=== PATIENT | female | born 1960 | race Caucasian/White ===

== ENCOUNTER → 2023-06-04 08:22 | Outpatient (REF) | payer OTHER, SELFPAY | LOC: RAD 08:22 | PROVIDERS: ATTENDING PHYSICIAN Physician Assistant | DX: M79.674 Pain in right toe(s) (principal) | CPT/HCPCS: 73660 ==

== ENCOUNTER → 2023-10-29 07:10 | Outpatient (REF) | payer OTHER, SELFPAY | LOC: WDC 07:10 | PROVIDERS: ATTENDING PHYSICIAN Nurse Practitioner Adult Health; FAMILY PHYSICIAN Physician Assistant | DX: Z12.31 Encounter for screening mammogram for malignant neoplasm of breast (principal) | CPT/HCPCS: 77063; 77067 ==

== ENCOUNTER → 2024-07-14 07:33 | Outpatient (REF) | payer OTHER, SELFPAY | LOC: RCS 07:33 | PROVIDERS: ATTENDING PHYSICIAN Internal Medicine Rheumatology; FAMILY PHYSICIAN Physician Assistant | DX: R01.1 Cardiac murmur, unspecified (principal) | CPT/HCPCS: 93306 ==

== ENCOUNTER → 2024-08-11 09:26 | Outpatient (REF) | payer OTHER, SELFPAY | LOC: RAD 09:26 | PROVIDERS: ATTENDING PHYSICIAN Internal Medicine Cardiovascular Disease; FAMILY PHYSICIAN Physician Assistant; REFERRING PHYSICIAN Internal Medicine Rheumatology | DX: R03.0 Elevated blood-pressure reading, without diagnosis of hypertension (principal); Z71.89 Other specified counseling; M35.00 Sjogren syndrome, unspecified | CPT/HCPCS: 75571 ==

== ENCOUNTER → 2024-10-29 15:41 | Outpatient (REF) | payer OTHER, SELFPAY | LOC: WDC 15:41 | PROVIDERS: ATTENDING PHYSICIAN Nurse Practitioner Adult Health; FAMILY PHYSICIAN Physician Assistant | DX: Z12.31 Encounter for screening mammogram for malignant neoplasm of breast (principal) | CPT/HCPCS: 77063; 77067 ==

== ENCOUNTER → 2024-12-11 11:21 | Outpatient (REF) | payer OTHER, SELFPAY ==
[2024-12-11 13:23] LABS: Hematocrit 37.3 % (37.0-47.0); Hemoglobin 11.6 g/dL (12.0-16.0); Mean Corp Hgb Conc. 31.1 g/dL (33.0-37.0); Mean Corpuscular Volume 65.3 fL (81.0-99.0); Nucleated Red Blood Cells % 0 %; Red Cell Dist. Width 18.0 % (11.5-14.5)
[2024-12-11 13:50] LABS: Platelet Count 217 10^3/uL (130-400)
[2024-12-11 13:51] LABS: Anisocytosis 1+; Hypochromasia 2+; Iron 100 ug/dl (37-170); Normal RBC Morphology No; Polychromasia 1+
[2024-12-11 13:52] LABS: Acanthocytes FEW; Basophilic Stippling 1+; Ovalocytes 1+; Target Cells FEW
[2024-12-11 13:53] LABS: Tear Drop Red Blood Cells 1+
[2024-12-11 14:06] LABS: Total Iron Binding Capacity 326 ug/dl (265-497)
[2024-12-11 14:25] LABS: Ferritin 25.2 ng/ml (11.1-264.0)
== END ==
LOC: REG 11:21
PROVIDERS: ATTENDING PHYSICIAN Internal Medicine Hematology & Oncology; FAMILY PHYSICIAN Physician Assistant
DX: D69.6 Thrombocytopenia, unspecified (principal)
CPT/HCPCS: 36415; 82728; 83540; 83550; 85025